=== PATIENT | female | born 2000 | race Caucasian/White ===

== ENCOUNTER 2023-07-26 14:10 | Emergency (ER) | payer OTHER, SELFPAY ==
[2023-07-26 14:15] VITALS: BP 139/93; PULSE 76; TEMP 36.9; O2SAT 97; BMI 33.3
--- NOTE | 2023-07-26 14:23 | US_ITS ---
[facility] [id number] Patient Name: ODALYS AUSTIN MRN: [id number] date: 2000 Sex: F Assigned Patient Location: ED.MAIN Current Patient Location: ER Accession/Order Number: [id number] Exam Date: 07/26/2023 15:40 Report Date: 07/26/2023 17:17 At the request of: RENETTA JENKINS Procedure: US OB <= 14 weeks fetus US PELVIS: OB LESS THAN 14 WEEKS HISTORY: G 1 P 0 AB Put AB here 22 year old female presents for US evaluation. LMP not provided. . Vaginal bleeding for 2 days getting worse with cramping TECHNIQUE: Multiple sonographic images are performed of the pelvis using grayscale, spectral and color Doppler with both transabdominal and transvaginal probes. COMPARISON: None. FINDINGS: Uterus: Uterus is gravid. Gestational Sac: TA: Present in endometrium. 7.2 cm, not calculated Gestational sac size and shape are within normal limits for the estimated gestational age. Amniotic fluid: Within normal limits for gestational age. Placenta: Posterior BPD: 2.37 cm, 14 weeks 0 days. Head circumference: 9.3 cm, 14 weeks 2 days. Abdominal circumference 6.9 cm, 13 weeks 3 days. Femur length: 1.3 cm, 13 weeks 5 days. Heart Rate: 177 bpm. Maternal: Ovaries: Right ovary: Measures 3.9 x 2.5 x 2.3 cm. Color Doppler demonstrated. Left ovary: Measures 3.9 x 2.3 x 2.4 cm. Color Doppler demonstrated. Free fluid: None. US/US OB <= 14 weeks fetus IMPRESSION: 1. Viable Granados fetus IUP in a breech presentation 2. AUA Estimated Gestational Age by US: 13 weeks 6 days by ultrasound +/- 1 week 0 day 3. Estimated due date by AUA: January 25, 2024 These values correlate with last menstrual period. Electronically authenticated by: MARA DALTON Date: 07/26/2023 17:17
[2023-07-26 17:23] LABS: Basophils Percent Auto 0.1 % (0.2-2.0); Eosinophils Percent Auto 0.1 % (0.9-7.0); Immature Granulocytes Abs Auto 0.08 10^3/uL (0.00-0.03); Immature Granulocytes Pct Auto 0.4 % (0.0-0.5); Lymphocytes Absolute Auto 1.2 10^3/uL (1.2-3.8); Lymphocytes Percent Auto 6.7 % (20.5-60.0); Mean Corpuscular HGB Conc 33.3 g/dL (29.9-35.2); Mean Corpuscular Hemoglobin 29.2 pg (26.7-34.0); Mean Corpuscular Volume 87.6 fL (81.0-99.0); Mean Platelet Volume 10.4 fL (9.5-13.5); Monocytes Absolute Auto 0.6 10^3/uL (0.3-0.8); Monocytes Percent Auto 3.3 % (1.7-12.0); Neutrophils Absolute Auto 16.5 10^3/uL (1.4-6.5); Neutrophils Percent Auto 89.4 % (43.0-75.0); Platelet Count 246 10^3/uL (150-450); Red Blood Count 4.11 10^6/uL (4.20-5.40); Red Cell Distribution Width 13.1 % (11.0-15.0); White Blood Count 18.5 10^3/uL (4.0-11.0)
[2023-07-26 17:33] LABS: Alanine Aminotransferase 18 U/L (14-59); Albumin Globulin Ratio 0.9; Albumin Level 3.3 g/dL (3.4-5.0); Alkaline Phosphatase 72 U/L (46-116); Anion Gap 13.1; Aspartate Amino Transferase 8 U/L (15-37); BUN Creatinine Ratio 13.2; Bilirubin Total 0.3 mg/dL (0.2-1.0); Calcium 8.6 mg/dL (8.5-10.1); Carbon Dioxide 24.4 mmol/L (21.0-32.0); Chloride 103 mmol/L (98-107); Estimated GFR (African America >60 (>=60); Estimated GFR (Non-African Ame >60 (>=60); Globulin 3.5 g/dL; Glucose 83 mg/dL (74-106); Potassium 3.5 mmol/L (3.5-5.1); Sodium 137 mmol/L (136-145); Total Protein 6.8 g/dL (6.4-8.2)
--- NOTE | 2023-07-26 17:40 | ED_ITS ---
HPI - Female Genitourinary General Chief complaint: OB/Uterine Contractions Stated complaint: 13 WEEKS W HEAVY BLEEDING Time Seen by Provider: 07/26/23 14:23 Source: patient Mode of arrival: walk-in History of Present Illness HPI Narrative: The patient 13 weeks presented to the ER after she had vaginal bleeding for the second day and will she was just evaluated yesterday in [facility] with her OB doctor's the patient mentioned that she was bleeding less than this yesterday, today she saw some clots and she is worried She mentioned it is associated with cramping in her suprapubic area. And 1 episode of vomiting There is no fever no chills no other complaints no decreased appetite Related Data Allergies Allergy/AdvReac Type Severity Reaction Status Date / Time No Known Drug Allergies Allergy Verified 07/26/23 14:19 Review of Systems ROS Status of ROS 10 or more systems reviewed and unremark able except as noted in history and below Exam Narrative Exam Narrative: Nurses notes and vital signs reviewed and patient is not hypoxic. General: Well-appearing and in no apparent distress. Skin: Warm, dry, no pallor noted. No rash. Head: Normocephalic, atraumatic. Neck: Supple, non-tender. Eye: Pupils are equal, round and EOMI. No scleral icterus. Ears, Nose, Mouth, and Throat: TM are clear, no nasal mucosal hypertrophy. Oral mucosa is moist, no posterior oropharynx erythema, uvula is mid-line Cardiovascular: Regular Rate and Rhythm without murmur, gallop or rub. Respiratory: No accessory muscle use or respiratory distress. Lungs are clear to auscultation, no wheezing, rales or rhonchi Chest Wall: no tenderness Back: No midline thoracic or lumbar vertebral tenderness. No CVA tenderness Musculoskeletal: normal ROM, no calf or popliteal tenderness, no lower extremity edema/swelling GI: Abdomen is soft, non-distended. Normal bowel sounds. No masses appreciated. Mild suprapubic tenderness appreciated Neurological: A&O x4. No cranial nerve dysfunction observed. No truncal ataxia. Moves all extremities. Sensation intact. Psychiatric: Cooperative and interactive. Normal mood and affect. Constitutional Vital Signs, click to edit/add: Last Vital Signs Temp 98.5 F 07/26/23 14:15 Pulse 76 07/26/23 14:15 Resp 16 07/26/23 14:15 BP 139/93 H 07/26/23 14:15 Pulse Ox 97 07/26/23 14:15 Course Vital Signs Vital signs: Vital Signs Temperature 98.5 F 07/26/23 14:15 Pulse Rate 76 07/26/23 14:15 Respiratory Rate 16 07/26/23 14:15 Blood Pressure 139/93 H 07/26/23 14:15 Pulse Oximetry 97 07/26/23 14:15 Temperature 98.5 F 07/26/23 14:15 Pulse Rate 76 07/26/23 14:15 Respiratory Rate 16 07/26/23 14:15 Blood Pressure 139/93 H 07/26/23 14:15 Pulse Oximetry 97 07/26/23 14:15 MDM - Female Genitourinary MDM Narrative Medical decision making narrative: The patient ultrasound shows that she have a normal intrauterine that is 13 weeks breech position. The patient CBC and chemistry showed no acute pathology she did had the leukocytosis that was seen in her blood workup yesterday right now there is no concern for other reason for the leukocytosis is mostly secondary to itself The patient also is O+ blood group The patient case was discussed with Dr. Gentile who will see the patient tomorrow morning in his office or she can just follow-up with her OB doctor tomorrow but the patient preferred to call Dr. Gentile tomorrow and follow-up with him Urinalysis pending The patient instructed about coming back in case of any increase in her bleeding or any symptoms of dizziness or shortness of breath. Lab Data Labs: Lab Results 07/26/23 Range/Units 17:02 WBC 18.5 H (4.0-11.0) 10^3/uL RBC 4.11 L (4.20-5.40) 10^6/uL Hgb 12.0 (12.0-16.0) g/dL Hct 36.0 (36.0-48.0) % MCV 87.6 (81.0-99.0) fL MCH 29.2 (26.7-34.0) pg MCHC 33.3 (29.9-35.2) g/dL RDW 13.1 (11.0-15.0) % Plt Count 246 (150-450) 10^3/uL MPV 10.4 (9.5-13.5) fL Neut % (Auto) 89.4 H (43.0-75.0) % Lymph % (Auto) 6.7 L (20.5-60.0) % [place] % (Auto) 3.3 (1.7-12.0) % Eos % (Auto) 0.1 L (0.9-7.0) % Baso % (Auto) 0.1 L (0.2-2.0) % Neut # (Auto) 16.5 H (1.4-6.5) 10^3/uL Lymph # (Auto) 1.2 (1.2-3.8) 10^3/uL [place] # (Auto) 0.6 (0.3-0.8) 10^3/uL Eos # (Auto) 0.0 (0.0-0.7) 10^3/uL Baso # (Auto) 0.0 (0.0-0.1) 10^3/uL Abs Immat Gran (auto) 0.08 H (0.00-0.03) 10^3/uL Imm/Tot Granulo (auto) 0.4 (0.0-0.5) % Sodium 137 (136-145) mmol/L Potassium 3.5 (3.5-5.1) mmol/L Chloride 103 (98-107) mmol/L Carbon Dioxide 24.4 (21.0-32.0) mmol/L Anion Gap 13.1 BUN 7.0 (7.0-18.0) mg/dL Creatinine 0.53 L (0.55-1.02) mg/dL Est GFR ( Amer) >60 (>=60) Est GFR (Non-Af Amer) >60 (>=60) BUN/Creatinine Ratio 13.2 Glucose 83 (74-106) mg/dL Calcium 8.6 (8.5-10.1) mg/dL Total Bilirubin 0.3 (0.2-1.0) mg/dL AST 8 L (15-37) U/L ALT 18 (14-59) U/L Alkaline Phosphatase 72 (46-116) U/L Total Protein 6.8 (6.4-8.2) g/dL Albumin 3.3 L (3.4-5.0) g/dL Globulin 3.5 g/dL Albumin/Globulin Ratio 0.9 HCG, Quant [id number] mIU/mL Blood Type O Positive Antibody Screen Negative Discharge Plan Discharge Stand Alone Forms: Portal Instructions Chief Complaint: OB/Uterine Contractions Clinical Impression: Threatened miscarriage Patient Disposition: Home, Self-Care Time of Disposition Decision: 18:07 Condition: Good Print Language: Upper Sorbian Instructions: Threatened Miscarriage (ED) Referrals: Porter Gentile DO [Physician] - 07/27/23 (please call the office early in the morning ) Physician,Non-Staff, [Primary Care Provider] - 1 week
[2023-07-26 17:53] LABS: HCG Quantitative 118586 mIU/mL
[2023-07-26] MEDS: ACETAMINOPHEN 325 MG TABLET 650 MG PO (17:56)
[2023-07-26 19:18] LABS: Bilirubin Urine NEGATIVE (NEGATIVE); Blood Urine LARGE (NEGATIVE); Clarity Urine CLEAR (CLEAR); Color Urine DK. BROWN (YELLOW); Glucose Urine UA NEGATIVE (NEGATIVE); Ketones Urine 40 mg/dL (NEGATIVE); Leukocyte Esterase Urine NEGATIVE (NEGATIVE); Nitrite Urine NEGATIVE (NEGATIVE); Protein Urine 100 mg/dL (NEG/TRACE); Specific Gravity Urine >=1.030 (1.005-1.025); pH Urine 6.5 (5.0-9.0)
[2023-07-26 19:20] LABS: Urine Microscopic Indicated YES; WBC Urine NONE SEEN #/HPF (NONE SEEN)
[2023-07-26 19:21] LABS: Cast Seen? NONE SEEN #/LPF (NONE SEEN); Crystals Seen? None Seen #/HPF (None Seen); Mucus Urine TRACE (NONE SEEN); RBC Urine >100 #/HPF (0-2); Squamous Epithelial Cell Urine FEW #/LPF (NONE/RARE); Urine Culture Indicated NO
--- NOTE | 2023-07-26 19:27 | ED.PREGNANC1 ---
HPI - General Chief complaint: OB/Uterine Contractions Stated complaint: 13 WEEKS W HEAVY BLEEDING Time Seen by Provider: 07/26/23 14:23 Source: patient Mode of arrival: walk-in History of Present Illness HPI Narrative: 22-year-old female presents to the emergency department and was initially seen by Dr. Galan and signed out to me after discussing the case with her thoroughly. Please see her full history and physical. Related Data Allergies Allergy/AdvReac Type Severity Reaction Status Date / Time No Known Drug Allergies Allergy Verified 07/26/23 14:19 Exam Constitutional Vital Signs, click to edit/add: Last Vital Signs Temp 98.5 F 07/26/23 14:15 Pulse 76 07/26/23 14:15 Resp 16 07/26/23 14:15 BP 139/93 H 07/26/23 14:15 Pulse Ox 97 07/26/23 14:15 Course Vital Signs Vital signs: Vital Signs Temperature 98.5 F 07/26/23 14:15 Pulse Rate 76 07/26/23 14:15 Respiratory Rate 16 07/26/23 14:15 Blood Pressure 139/93 H 07/26/23 14:15 Pulse Oximetry 97 07/26/23 14:15 Temperature 98.5 F 07/26/23 14:15 Pulse Rate 76 07/26/23 14:15 Respiratory Rate 16 07/26/23 14:15 Blood Pressure 139/93 H 07/26/23 14:15 Pulse Oximetry 97 07/26/23 14:15 MDM - OB/Uterine Contractions MDM Narrative Medical decision making narrative: Urinalysis shows no evidence of UTI and she will be discharged home. She is requesting referral to computer engineer and this is being accomplished tonight. Findings are discussed with the patient and her family. Differential Diagnosis Differential diagnosis: Likely other (Miscarriage, threatened miscarriage) Lab Data Attestation: I reviewed the patient's lab results. Labs: Lab Results 07/26/23 07/26/23 Range/Units 17:02 19:10 WBC 18.5 H (4.0-11.0) 10^3/uL RBC 4.11 L (4.20-5.40) 10^6/uL Hgb 12.0 (12.0-16.0) g/dL Hct 36.0 (36.0-48.0) % MCV 87.6 (81.0-99.0) fL MCH 29.2 (26.7-34.0) pg MCHC 33.3 (29.9-35.2) g/dL RDW 13.1 (11.0-15.0) % Plt Count 246 (150-450) 10^3/uL MPV 10.4 (9.5-13.5) fL Neut % (Auto) 89.4 H (43.0-75.0) % Lymph % (Auto) 6.7 L (20.5-60.0) % [place] % (Auto) 3.3 (1.7-12.0) % Eos % (Auto) 0.1 L (0.9-7.0) % Baso % (Auto) 0.1 L (0.2-2.0) % Neut # (Auto) 16.5 H (1.4-6.5) 10^3/uL Lymph # (Auto) 1.2 (1.2-3.8) 10^3/uL [place] # (Auto) 0.6 (0.3-0.8) 10^3/uL Eos # (Auto) 0.0 (0.0-0.7) 10^3/uL Baso # (Auto) 0.0 (0.0-0.1) 10^3/uL Abs Immat Gran (auto) 0.08 H (0.00-0.03) 10^3/uL Imm/Tot Granulo (auto) 0.4 (0.0-0.5) % Sodium 137 (136-145) mmol/L Potassium 3.5 (3.5-5.1) mmol/L Chloride 103 (98-107) mmol/L Carbon Dioxide 24.4 (21.0-32.0) mmol/L Anion Gap 13.1 BUN 7.0 (7.0-18.0) mg/dL Creatinine 0.53 L (0.55-1.02) mg/dL Est GFR ( Amer) >60 (>=60) Est GFR (Non-Af Amer) >60 (>=60) BUN/Creatinine Ratio 13.2 Glucose 83 (74-106) mg/dL Calcium 8.6 (8.5-10.1) mg/dL Total Bilirubin 0.3 (0.2-1.0) mg/dL AST 8 L (15-37) U/L ALT 18 (14-59) U/L Alkaline Phosphatase 72 (46-116) U/L Total Protein 6.8 (6.4-8.2) g/dL Albumin 3.3 L (3.4-5.0) g/dL Globulin 3.5 g/dL Albumin/Globulin Ratio 0.9 HCG, Quant 694250 mIU/mL Urine Color Dk. brown (YELLOW) Urine Clarity Clear (CLEAR) Urine pH 6.5 (5.0-9.0) Ur Specific [place] >=1.030 A (1.005-1.025) Urine Protein 100 A (NEG/TRACE) mg/dL Urine Glucose (UA) Negative (NEGATIVE) mg/dL Urine Ketones 40 A (NEGATIVE) mg/dL Urine Occult Blood Large A (NEGATIVE) Urine Nitrite Negative (NEGATIVE) Urine Bilirubin Negative (NEGATIVE) Urine Urobilinogen 1.0 (0.2-1.0) EU/dL Ur Leukocyte Esterase Negative (NEGATIVE) Urine RBC >100 A (0-2) #/HPF Urine WBC None seen (NONE SEEN) #/HPF Ur Squamous Epith Cells Few A (NONE/RARE) #/LPF Urine Crystals None seen (None Seen) #/HPF Urine Casts None seen (NONE SEEN) #/LPF Urine Mucus Trace A (NONE SEEN) Ur Culture Indicated? No Blood Type O Positive Antibody Screen Negative Imaging Data Pelvic ultrasound: Radiologist's impression: ITS Impressions Ultrasound 07/26/23 14:23 IMPRESSION: 1. Viable Granados fetus IUP in a breech presentation 2. AUA Estimated Gestational Age by US: 13 weeks 6 days by ultrasound +/- 1 week 0 day 3. Estimated due date by AUA: January 25, 2024 These values correlate with last menstrual period. Electronically authenticated by: MARA DALTON Date: 07/26/2023 17:17 Discharge Plan Discharge Stand Alone Forms: Portal Instructions Chief Complaint: OB/Uterine Contractions Clinical Impression: Threatened miscarriage Patient Disposition: Home, Self-Care Time of Disposition Decision: 18:07 Condition: Good Mode of Transportation: Private Vehicle Print Language: Greek Instructions: Threatened Miscarriage (ED) Referrals: Porter Gentile DO [Physician] - 07/27/23 (please call the office early in the morning ) Physician,Non-Staff, [Primary Care Provider] - 1 week
[2023-07-26 19:52] LABS: Bacteria Urine NONE SEEN #/HPF (NONE SEEN)
== END 2023-07-26 19:45 | disposition home or self-care (01) ==
PROVIDERS: Emergency Medicine; Emergency Provider Emergency Medicine
DX: O20.0 Threatened abortion (principal); Z3A.13 13 weeks gestation of pregnancy
CPT/HCPCS: 36415; 76801; 80053; 81001; 84702; 85025; 86850; 86900; 86901; 99284

== ENCOUNTER 2023-07-27 05:38 | Day surgery (SDC) | payer OTHER, SELFPAY ==
[2023-07-27] VITALS (15 sets, daily range): BP systolic 109–117; BP diastolic 64–86; PULSE 58–79; TEMP 36.1–36.7; O2SAT 98–100; BMI 33.5
--- NOTE | 2023-07-27 05:59 | ECG_ITS ---
[facility] Test Date: 2023-07-27 Pat Name: ODALYS AUSTIN Department: Room: - Gender: Female Compensation Intern: : 2000 Requested By: [id number] Order Number: [id number] Reading MD: CRISTOBAL STAUFFER Measurements Intervals [place] Rate: 60 P: 38 MT: 146 QRS: 89 QRSD: 80 T: 1 QT: 400 QTc: 401 Interpretive Statements 1100 Sinus rhythm 4068 Nonspecific [place] abnormality - subtle inferior wall changes 9130 borderline ECG No previous ECG available for comparison Electronically Signed On 07-29-2023 19:13:53 EDT by CRISTOBAL STAUFFER
--- NOTE | 2023-07-27 06:00 | ED_ITS ---
HPI - General Chief complaint: OB/Uterine Contractions Stated complaint: Time Seen by Provider: 07/27/23 05:49 Source: patient Mode of arrival: ambulance History of Present Illness HPI Narrative: 22-year-old female presents for miscarriage. She was seen here yesterday and had vaginal bleeding in . She had an ultrasound that showed viable IUP at 13 weeks 6 days. Shortly before coming into the emergency department the patient started having more bleeding and passed the fetus at home. Paramedics clamped the cord and transported her and the fetus here. Related Data Allergies Allergy/AdvReac Type Severity Reaction Status Date / Time No Known Drug Allergies Allergy Verified 07/26/23 14:19 Review of Systems ROS Narrative A ten point review of systems is negative except as noted above. Exam Narrative Exam Narrative: Nurses note and vital signs reviewed and patient is not hypoxic. General: The patient appears well and in no apparent distress. Patient is resting comfortably on cart. Skin: Warm, dry, pallor noted. There is no rash noted. Head: Normocephalic, atraumatic Eye: Normal conjunctiva, no drainage Ears, Nose, Mouth, and Throat: oral mucosa is moist. Nares patent. Cardiovascular: Regular Rate and Rhythm, not tachycardic Respiratory: Patient is in no distress, no accessory muscle use, lungs are c lear to auscultation, no wheezing, rales or rhonchi Back: non-tender GI: Soft and nontender : Umbilical cord is coming out from her vagina and has been clamped. Musculoskeletal: The patient has no evidence of calf tenderness, no pitting edema, symmetrical pulses noted bilaterally Neurological: A&O, normal speech Psychiatric: Cooperative Nonviable fetus is present in the room with the patient in a basin. Constitutional Vital Signs, click to edit/add: Last Vital Signs Temp 98.1 F 07/27/23 05:41 Pulse 77 07/27/23 06:27 Resp 16 07/27/23 05:41 BP 109/71 07/27/23 06:27 Pulse Ox 98 07/27/23 06:27 O2 Del Method Room Air 07/27/23 05:41 Course Vital Signs Vital signs: Vital Signs Temperature 98.1 F 07/27/23 05:41 Pulse Rate 64 07/27/23 05:41 Respiratory Rate 16 07/27/23 05:41 Blood Pressure 117/86 07/27/23 05:41 Pulse Oximetry 100 07/27/23 05:41 Oxygen Delivery Method Room Air 07/27/23 05:41 Temperature 98.1 F 07/27/23 05:41 Pulse Rate 77 07/27/23 06:27 Respiratory Rate 16 07/27/23 05:41 Blood Pressure 109/71 07/27/23 06:27 Pulse Oximetry 98 07/27/23 06:27 Oxygen Delivery Method Room Air 07/27/23 05:41 MDM - OB/Uterine Contractions MDM Narrative Medical decision making narrative: Blood work is ordered and the case is discussed with Dr. Gentile. He will be coming to the hospital to see the patient. Differential Diagnosis Differential diagnosis: Likely other (Miscarriage, incomplete miscarriage) ECG Data Attestation: I personally reviewed and interpreted this ECG as follows: (EKG on my interpretation shows sinus rhythm with a rate of 60.) Discharge Plan Discharge Patient Disposition: Still a Patient
--- NOTE | 2023-07-27 06:12 | PC.NURSE ---
PT PRESENTS TO ER FOR SPONTANEOUS . PT 12-14 WEEKS GESTATION. PT STATES THIS IS FIRST . PT WAS SEEN IN ER 2 TIMES THIS WEEK WITH VAGINAL BLEEDING AND ABDOMINAL PAIN. LAST VISIT 07/24. PT WAS ON TOILET AT 0430 THIS MORNING AND DELIVERED FETUS. EMS CALLED AND UMBILICAL CORD CUT AND CLAMPED BY EMS. PLACENTA REMAINS IN PT. FETUS PLACED IN BASIN AND COVERED BY EMS. HEAVY BLEEDING NOTED ON SHEETS UPON ARRIVAL AND PT C/O OF INTERMITTENT CONTRACTIONS.
[2023-07-27] MEDS: MORPHINE SULFATE 4 MG/ML VIAL IV (06:30)
[2023-07-27] MEDS: ONDANSETRON PF 4 MG/2 ML VIAL IV (06:30)
[2023-07-27 07:25] LABS: Basophils Absolute Auto 0.1 10^3/uL (0.0-0.1); Basophils Percent Auto 0.2 % (0.2-2.0); Eosinophils Absolute Auto 0.1 10^3/uL (0.0-0.7); Eosinophils Percent Auto 0.5 % (0.9-7.0); Hematocrit 33.3 % (36.0-48.0); Hemoglobin 11.2 g/dL (12.0-16.0); Immature Granulocytes Abs Auto 0.08 10^3/uL (0.00-0.03); Immature Granulocytes Pct Auto 0.4 % (0.0-0.5); Lymphocytes Absolute Auto 1.1 10^3/uL (1.2-3.8); Lymphocytes Percent Auto 4.8 % (20.5-60.0); Mean Corpuscular HGB Conc 33.6 g/dL (29.9-35.2); Mean Corpuscular Hemoglobin 29.6 pg (26.7-34.0); Mean Corpuscular Volume 88.1 fL (81.0-99.0); Mean Platelet Volume 10.3 fL (9.5-13.5); Monocytes Absolute Auto 0.7 10^3/uL (0.3-0.8); Monocytes Percent Auto 3.3 % (1.7-12.0); Neutrophils Percent Auto 90.8 % (43.0-75.0); Platelet Count 231 10^3/uL (150-450); Red Blood Count 3.78 10^6/uL (4.20-5.40); Red Cell Distribution Width 13.2 % (11.0-15.0)
[2023-07-27] MEDS: LACTATED RINGER'S SOLUTION 1,000 ML 50 ML IV (07:26)
[2023-07-27 07:35] LABS: Calcium 8.4 mg/dL (8.5-10.1); Carbon Dioxide 22.6 mmol/L (21.0-32.0); Chloride 103 mmol/L (98-107); Estimated GFR (African America >60 (>=60); Estimated GFR (Non-African Ame >60 (>=60); Glucose 84 mg/dL (74-106); Potassium 3.6 mmol/L (3.5-5.1); Sodium 137 mmol/L (136-145)
[2023-07-27 07:43] LABS: INR 0.96; Partial Thromboplastin Time 24.3 sec (22.3-36.2); Prothrombin Time 10.2 sec (9.0-11.6)
--- NOTE | 2023-07-27 08:00 | US_ITS ---
The [address] [address] Patient Name: ODALYS AUSTIN MRN: [id number] date: 2000 Sex: F Assigned Patient Location: OR Current Patient Location: OR Accession/Order Number: [id number] Exam Date: 07/27/2023 08:02 Report Date: 07/27/2023 09:04 At the request of: JOEL CORMIER Procedure: US pelvis EXAMINATION: US pelvis HISTORY: pt in surgery ; retained products of conception removal COMPARISON: Ultrasound OB 07/26/2023 TECHNIQUE: Transabdominal and/or transvaginal sonographic examination was performed as indicated by examination type. FINDINGS: 2 initial images of the uterus prior to dilation and curettage show a 1.6 cm echogenic structure within lower uterine segment. The echogenic structures no longer present post dilation and curettage. US/US pelvis IMPRESSION: 1. No appreciable retained products of conception. Electronically authenticated by: PRASHANT LOJA Date: 07/27/2023 09:04
--- NOTE | 2023-07-27 08:22 | P.ON_ITS ---
Brief Operative Note Date of procedure: 07/27/23 Pre-op diagnosis general: incomplete 2nd trimester Post-op diagnosis: same as pre-op Procedure: NAME OF PROCEDURE: [D&C suction ] PROCEDURE: The patient was taken back to the OR where she was given general anesthesia without difficulty. She was then placed in dorsal lithotomy position, prepped and draped in the normal sterile fashion. A weighted speculum was placed in the patient's vagina and the anterior lip of the cervix was identified and grasped with a single-tooth tenaculum. The patient was then gently dilated using Hegar dilators after we had sounded roughly to 12 cm. The suction curette was then tested. The suction curette was then placed in the patient's uterus and products of conception were removed using an 10-[place] suction curette. ?Excellent hemostasis was noted. The patient tolerated the procedure well. Sponge, lap, and needle counts were correct x 2. All instruments were then removed from the patient's vagina. The patient was taken to the Recovery Room in stable condition. ?? Anesthesia: MAC Surgeon: Porter Gentile Estimated blood loss (mL): 10 Pathology: other (poc) Condition: stable Disposition: PACU Urinary Catheter Management Urinary Catheter Management Straight: Cath placed during this visit: no
[2023-07-27] MEDS: AZITHROMYCIN 250 MG TABLET 1000 MG PO (09:10)
[2023-07-27] MEDS: CEFTRIAXONE 500 MG, LIDOCAINE HCL/PF 1 ML IM (09:11)
== END 2023-07-27 09:28 | disposition home or self-care (01) ==
LOC: ER 06:44 → OR 07:24
PROVIDERS: Emergency Medicine; Emergency Provider Emergency Medicine Emergency Medical Services; Visit Provider Obstetrics & Gynecology
PROC: (CPT 1965; principal; 2023-07-27 07:15)
DX: O03.4 Incomplete spontaneous abortion without complication (principal)
CPT/HCPCS: 59812; 36415; 76856; 80048; 85025; 85610; 85730; 86900; 86901; 88300; 88305; 93005; 99285; 99999; J1094; J2704